=== PATIENT | female | born 1945 | race Caucasian/White ===

== ENCOUNTER 2019-07-27 18:12 | Emergency (ER) | payer MEDICARE, BC, MEDICAID ==
[2019-07-27] MEDS: IBUPROFEN 800 MG TAB PO (18:58)
== END 2019-07-27 20:49 | disposition home or self-care (01) ==
LOC: FTE 20:49
DX: S92.901A Unspecified fracture of right foot, initial encounter for closed fracture (principal); S89.92XA Unspecified injury of left lower leg, initial encounter; I10 Essential (primary) hypertension; W18.30XA Fall on same level, unspecified, initial encounter; Y92.9 Unspecified place or not applicable
CPT/HCPCS: 29515; 73562; 73630; 99284-25

== ENCOUNTER 2019-07-30 15:17 | Emergency (ER) | payer MEDICARE, BC | END 2019-07-30 17:13 | disposition home or self-care (01) | LOC: E/R 17:13 | DX: S20.212A Contusion of left front wall of thorax, initial encounter (principal); W01.198A Fall on same level from slipping, tripping and stumbling with subsequent striking against other object, initial encounter; Y92.9 Unspecified place or not applicable | CPT/HCPCS: 71046; 99283-25 ==